=== PATIENT | female | born 1990 | race Two or more races ===

== ENCOUNTER 2016-05-11 01:15 | Emergency (ER) | payer SELFPAY ==
[~2016-05-11] VITALS: Ht 162.6 cm; Wt 75.3 kg
[2016-05-11 01:42] LABS: Basophils # (auto) 0.1 uL; Basophils % (auto) 0.5 % (0.0-2.0); Eosinophils # (auto) 0 uL; Eosinophils % (auto) 0.4 % (0.0-7.0); Hematocrit 38.9 % (36.0-46.0); Hemoglobin 12.5 g/dL (12.2-16.2); Lymphocytes # (auto) 3.1 uL; Lymphocytes % (auto) 24.9 % (10.0-50.0); Mean Corpuscular Hgb Conc. 32.1 g/dL (32.0-36.0); Mean Corpuscular Volume 90.4 fL (80.0-100.0); Mean Platelet Volume 8.6 fL (7.4-10.4); Monocytes # (auto) 0.8 uL; Monocytes % (auto) 6.7 % (0.0-12.0); Neutrophils # (auto) 8.3 uL; Neutrophils % (auto) 67.5 % (37.0-80.0); Platelet Count (auto) 270 10^3/uL (140-450); White Blood Cell 12.3 10^3/uL (4.4-10.8)
[2016-05-11 01:59] LABS: Albumin 3.6 g/dL (3.4-5.0); BUN/Creatinine Ratio 11.4; Calcium 8.4 mg/dL (8.5-10.1); Potassium 3.3 mmol/L (3.5-5.1)
[2016-05-11 02:02] LABS: Bilirubin, Total 0.6 mg/dL (0.2-1.0); Total Protein 7.1 g/dL (6.4-8.2)
[2016-05-11 03:45] LABS: Urine Bilirubin Negative (Negative); Urine Blood Negative /uL (Negative); Urine Ca Oxalate Crystal FEW (None Seen); Urine Color Yellow (Yellow); Urine Glucose Normal (Normal); Urine Ketone TRACE (Negative); Urine Mucus FEW (None Seen); Urine Nitrite Negative (Negative); Urine RBC 8 /hpf (0 - 4); Urine Squamous Epithelial Cell FEW /hpf (<5); Urine Urobilinogen Normal (Negative)
[2016-05-11] MEDS ORDERED: POTASSIUM CHL 20 Meq TABLET PO ONE ×2 (04:35→04:45)
[2016-05-11 04:40] VITALS: BP 105/60
== END 2016-05-11 04:55 | disposition home or self-care (01) ==
LOC: ER 01:16
DX: O99.341 Other mental disorders complicating pregnancy, first trimester (principal); F41.9 Anxiety disorder, unspecified; Z3A.08 8 weeks gestation of pregnancy; E87.6 Hypokalemia
CPT/HCPCS: 36415; 80053; 81001; 82962; 84702; 85025; 93005